=== PATIENT | male | born 1995 | race Caucasian/White ===

== ENCOUNTER 2020-12-09 07:57 | Emergency (ER) | payer OTHER, SELFPAY ==
--- NOTE | ~2020-12-09 | XR_ITS ---
EXAMINATION: XR ANKLE, RIGHT CLINICAL INFORMATION: Fall. COMPARISON: None. TECHNIQUE: AP, lateral, and mortise views of the right ankle. FINDINGS: Circumferential soft tissue swelling, most severe medially. Widening of the medial tibiotalar joint, likely indicating slight lateral talar head subluxation. Tiny probable avulsion fracture along the medial aspect of the talus. No joint space narrowing or marginal osteophytes. No osseous erosion. XR/XR ankle RT 2V IMPRESSION: Widening at the medial tibiotalar joint space, likely indicating slight lateral subluxation of the talar head. Probable tiny avulsion fracture along the medial aspect of the talus. Circumferential soft tissue swelling, most severe medially.
[2020-12-09 08:11] VITALS: BP 122/79; PULSE 820; RESP 16; TEMP 36.7; O2SAT 99; BMI 33.5
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
--- NOTE | 2020-12-09 08:32 | PC.NURSE ---
patient currently in x ray
== END 2020-12-09 09:46 | disposition home or self-care (01) ==
PROVIDERS: Emergency Provider Internal Medicine
DX: S93.401A Sprain of unspecified ligament of right ankle, initial encounter (principal); V18.0XXA Pedal cycle driver injured in noncollision transport accident in nontraffic accident, initial encounter; Y93.55 Activity, bike riding; Y92.9 Unspecified place or not applicable; Y99.9 Unspecified external cause status
CPT/HCPCS: 29515; 73600; 99282; 99283

== ENCOUNTER 2020-12-13 11:22 | Outpatient (REF) | payer OTHER, SELFPAY ==
--- NOTE | ~2020-12-13 | XR_ITS ---
EXAMINATION: XR TIBIA AND FIBULA, RIGHT CLINICAL INFORMATION: Sprain of one specified ligament. COMPARISON: Right ankle dated 12/09/20. TECHNIQUE: AP and lateral views of the right tibia and fibula were obtained. FINDINGS: There is an oblique fracture of the proximal shaft of the fibula. Alignment is anatomic. There is mild widening of the ankle mortise medially. XR/XR tibia fibula RT 2V IMPRESSION: Fracture proximal fibula with widening of the ankle mortise consistent with Maisonneuve fracture.
== END 2020-12-13 11:23 | disposition home or self-care (01) ==
LOC: HO.HOSX 11:22
PROVIDERS: Visit Provider Physician Assistant
DX: S82.861A Displaced Maisonneuve's fracture of right leg, initial encounter for closed fracture (principal); S93.439A Sprain of tibiofibular ligament of unspecified ankle, initial encounter
CPT/HCPCS: 73590

== ENCOUNTER 2020-12-18 11:18 | Day surgery (SDC) | payer OTHER, SELFPAY ==
--- NOTE | 2020-12-17 09:27 | P.CONAN_ITS ---
Documented by User: Leeanna Hermosillo NP 12/17/20 09:37 HPI - Anesthesia Eval Consult details Narrative: 25yo for Right Ankle ORIF with syndesmosis repair [facility] Past Medical History Medical History No significant past medical history Social History Social History Patient Tobacco Use Status: Never used Tobacco Use of substances other than those prescribed or required for medical reasons: No Have you been hit, kicked, punched, or otherwise hurt by someone within the past year? If so, by whom?: No Are you DNR?: No Advance Directives: No Advance Directives Information Provided: Yes Recently lost weight without trying: No Nutrition Risks: No Nutritional Risk Current occupational status: employed Current occupation: [employer] Allergies Allergy/AdvReac Type Severity Reaction Status Date / Time No Known Allergies Allergy Verified 12/18/20 11:41 Exam Exam Date and Time: December 17, 2020926 Assessment and Plan Assessment Anesthesia Assessment: Chart Reviewed Documented by User: Claudia Crum MD 12/18/20 13:18 [facility] Past Medical History Medical History No significant past medical history Family History Family history of problems with anesthesia: No Surgical History History of Problems with Anesthesia: No Social History Social History Patient Tobacco Use Status: Never used Tobacco Use of substances other than those prescribed or required for medical reasons: No Have you been hit, kicked, punched, or otherwise hurt by someone within the past year? 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 [employer] Meds Allergies Allergy/AdvReac Type Severity Reaction Status Date / Time No Known Allergies Allergy Verified 12/18/20 11:41 Exam Airway Mallampati Class: II TM Dist: >3cm Neck ROM: Full Assessment and Plan Assessment Anesthesia Assessment: Anesthesia Plan Discussed Final Anesthetic Review Family History of Problems with Anesthesia: No History of Problems with Anesthesia: No NPO: Yes ASA Class: I Final Preanesthetic Review: No Changes in Pt Med Stat, Meds/Allgs Chart Reviewed, Consent Obtained/Reviewed and Anes Risks/Benef Reviewed Patient Risk: Low Procedure Risk: Low Assessment/Block/Sedation in SS: Assess/Block/Sedation-SS Anesthetic Plan Anesthetic Plan: GA Disposition: Standard PACU
--- NOTE | ~2020-12-18 | FL_ITS ---
EXAMINATION: XR FLUOROSCOPY WITH IMAGES CLINICAL INFORMATION: Fracture right ankle. COMPARISON: Fracture proximal fibula. TECHNIQUE: Fluoroscopy performed by Dr. Joy on. Fluoroscopy time: 0.4 minutes DAP: 0.0314 mGycm2 Images: 3 FINDINGS: There is a small plate along the lateral aspect of fibula and medial aspect of the tibia with translucent tract connecting the 2 for likely stabilization/fusion. The ankle mortise and subtalar joints are normal. No fracture seen. FL/FL guidance in OR IMPRESSION: 2 metallic plates on the medial distal tibia and lateral distal fibula with interconnecting translucent tracts are stable. No acute fracture seen involving the ankle.
[2020-12-18 11:31] VITALS: BMI 34.4
[2020-12-18 11:34] VITALS: BP 142/79; PULSE 82; RESP 18; TEMP 36.6; O2SAT 97
[2020-12-18] MEDS: Lactated Ringers 1,000 ML 100 ML IVCONT (11:49)
--- NOTE | 2020-12-18 14:54 | P.BOP_ITS ---
Brief Operative Note Date of Service: 12/18/20 Pre-op diagnosis: maissonueve fracture, right Post-op diagnosis: same Procedure: ORIF right ankle syndesmosis Implants: [place] 2 hole fibular plate arthrex tightrope x2 Surgeon: Paulino Joy MD Anesthesia: GETA and local Was an Evp General Counsel used for this Procedure?: Yes Evp General Counsel: Ivania Mattson Estimated blood loss (mL): 5 IV fluids (mL): 500 Pathology: none sent Condition: stable Disposition: PACU
[2020-12-18 15:00] VITALS: BP 153/90; PULSE 82; RESP 12; TEMP 36.2; O2SAT 97
[2020-12-18 15:05] VITALS: BP 139/80; PULSE 85; RESP 14; O2SAT 94
[2020-12-18 15:10] VITALS: BP 135/93; PULSE 73; RESP 16; O2SAT 96
[2020-12-18 15:15] VITALS: BP 149/88; PULSE 80; RESP 18; O2SAT 97
[2020-12-18] MEDS: Acetaminophen 325 MG TABLET 650 MG PO (15:18)
[2020-12-18] MEDS: oxyCODONE HCl Immed Release 5 MG TABLET PO (15:19)
[2020-12-18 15:30] VITALS: BP 128/85; PULSE 78; RESP 16; TEMP 36.2; O2SAT 99
--- NOTE | 2020-12-23 16:42 | W.PM.OPN ---
Operative Note Operative Note Date of Service: 12/18/20 Narrative: Pre-op diagnosis: maissonueve fracture, right Post-op diagnosis: same Procedure: ORIF right ankle syndesmosis Implants: [place] 2 hole fibular plate arthrex tightrope x2 Surgeon: Paulino Joy MD Anesthesia: GETA and local Was an Special Education Instructor used for this Procedure?: Yes Special Education Instructor: Ivania Mattson Estimated blood loss (mL): 5 IV fluids (mL): 500 Pathology: none sent Condition: stable Disposition: PACU Procedure in detail: Patient was brought to the operating room placed supine on the operative table and prepped and draped in standard sterile fashion. Time-out was called of her purpose hyper procedure proper surgeon IV antibiotics per weight were administered. I began by exsanguinating limited slightly tourniquet to 300 mm Hg. I then made a small stab incision over the distal fibular shaft. Dissection was taken down to the bone and a incision was made over the medial aspect of the distal tibia as well. This was approximately 5 mm in length. A sharp tenaculum was the used to reduce the syndesmosis. I then placed a 2 hole lateral buttress plate and using standard technique placed the Arthrex tight rope from lateral to medial in line with the articular surface. I then tightened each of these tight rope sequentially and then removed the syndesmosis clamp. I was happy with the radiographic imaging and a external rotation test was used to confirm that the mortise was stable and the medial clear space did not widen. Once I was happy with the position of the hardware in the stability of the syndesmosis I removed all instrumentation. I irrigated copiously closed with absorbable sutures and gianluca. Patient was placed into a well-padded posterior splint extubated brought to recovery room in stable condition there were no known complications.
== END 2020-12-18 16:24 | disposition home or self-care (01) ==
PROVIDERS: PCP Internal Medicine; Visit Provider Orthopaedic Surgery
PROC: (CPT 27829; principal; 2020-12-18 13:40)
DX: S82.861A Displaced Maisonneuve's fracture of right leg, initial encounter for closed fracture (principal); S93.431A Sprain of tibiofibular ligament of right ankle, initial encounter; V19.9XXA Pedal cyclist (driver) (passenger) injured in unspecified traffic accident, initial encounter; Y93.55 Activity, bike riding; Y92.9 Unspecified place or not applicable; Y99.8 Other external cause status
CPT/HCPCS: 27829; C1713; J0690; J1100; J2250; J2405; J3010

== ENCOUNTER → 2020-12-27 14:22 | Outpatient (BNVA) | payer OTHER, SELFPAY | PROVIDERS: Visit Provider Physician Assistant ==

== ENCOUNTER 2021-01-01 07:57 | Outpatient (REF) | payer OTHER, SELFPAY ==
--- NOTE | ~2021-01-01 | XR_ITS ---
EXAMINATION: XR ANKLE, RIGHT CLINICAL INFORMATION: Right ankle pain. COMPARISON: Right tibia and fibula 12/18/2020 TECHNIQUE: AP, lateral, and mortise views of the right ankle. FINDINGS: Again visualized are metallic plates along the lateral distal tibial cortex and 2 medial metallic plates along the distal tibial medial cortex and 2 translucent tracks through the distal tibia and fibula. They appear similar to previous study 12/18/2020. The ankle mortise and subtalar joints are normal. XR/XR ankle RT min 3V IMPRESSION: Metallic plates along the distal fibula and along the medial distal tibia are visualized with 2 translucent tracks along the distal tibia and fibula.
== END 2021-01-01 07:58 | disposition home or self-care (01) ==
LOC: HO.HOSX 07:57
PROVIDERS: Visit Provider Physician Assistant
DX: S93.431D Sprain of tibiofibular ligament of right ankle, subsequent encounter (principal); S82.861D Displaced Maisonneuve's fracture of right leg, subsequent encounter for closed fracture with routine healing
CPT/HCPCS: 73610

== ENCOUNTER 2021-01-30 10:16 | Outpatient (REF) | payer OTHER, SELFPAY ==
--- NOTE | ~2021-01-30 | XR_ITS ---
EXAMINATION: XR ANKLE, RIGHT CLINICAL INFORMATION: Pain. COMPARISON: Previous x-rays most recent 01/01/2021. TECHNIQUE: AP, lateral, and mortise views of the right ankle. FINDINGS: There are lateral plates in the distal fibular shaft and 2 medial plates in the distal tibial shaft. Horizontal lucent tracks in the distal shafts of the tibia and fibula appear unchanged. The ankle mortise is normal. There is anterior and medial soft tissue swelling adjacent to the ankle. There may be an ankle joint effusion. XR/XR ankle RT min 3V IMPRESSION: Stable appearance to the orthopedic hardware in the distal tibia and fibula. Stable ankle mortise. Anterior and medial soft tissue swelling.
== END 2021-01-30 10:17 | disposition home or self-care (01) ==
LOC: HO.HOSX 10:16
PROVIDERS: Visit Provider Physician Assistant
DX: S93.431D Sprain of tibiofibular ligament of right ankle, subsequent encounter (principal)
CPT/HCPCS: 73610

== ENCOUNTER 2021-04-15 07:00 | Outpatient (RCR) | payer OTHER, SELFPAY ==
--- NOTE | 2021-03-04 09:53 | MHC.PT.EP ---
[facility] [place] Office [place] Office [place] Office [address] Negra Silva [address] [phone] F: [phone] F: [phone] F: [phone] F: [phone] Physical Therapy Plan of Care Date of Evaluation: Date of Surgery: 12/18/20 Diagnosis: LEFT ANKLE SYNDESMOSIS REPAIR Assessment: JORGE IS A PLEASANT 25 YO MALE WHO PRESENTS S/P LEFT ANKLE SYNDESMOSIS REPAIR ON 12/18/20. UPON EXAM IMPAIRMENTS INCLUDE DECREASED FOOT AND ANKLE ROM, DECREASED STRENGTH OF FOOT INTRINSICS AND ANKLE, ALTERED GAIT AND BALANCE. FUNCTIONAL LIMITATIONS INCLUDE DECREASED TOLERANCE TO WALKING, STATIC STANDING, STAIR CLIMBING AND HIGHER DEMAND HOMEMAKING TASKS, HE REPORTS INABILITY TO PARTICIPATE IN FITNESS AND RECREATIONAL TASKS. A PT IS A GOOD CANDIDATE FOR SKILLED PT DUE TO AGE, POTENTIAL REMEDIATION OF IMPAIRMENTS, TYPICAL DISEASE/CONDITION PROGRESSION AND PROGNOSIS, COMORBIDITIES, AND MOTIVATION. PT WOULD BENEFIT FROM TAILORED PROGRAM OF THERAPEUTIC ACTIVITIES, FUNCTIONAL TRAINING, GAIT TRAINING, POSTURAL EDUCATION, NEUROMUSCULAR RE-EDUCATION, AND MODALITIES NEEDED. Frequency and Duration: The patient will be seen 2 X WEEK FOR 4 WEEKS THEN REASSESS Short Term Goals: INITIATE HEP AND PROMOTE SELF MANAGEMENT OF SYMPTOMS IN 2 VISITS Hose Finisher Goals: IN 4 WEEKS: TO DEMONSTRATE FULL ANKLE ROM, EQUAL CLYDE TO DEMONSTRATE FULL LE STRENGTH, EQUAL CLYDE TO ASCEND AND DESCEND STAIRS WITHOUT PAIN TO AMBULATE AD FELIZ ON LEVEL AND UNEVEN SURFACES FOR FITNESS WITHOUT PAIN GREATER THAN 2/10 TO PERFORM FULL FUNCTIONAL SQUAT WITHOUT SUBSTITUTION TO RETURN TO FITNESS ACTIVITIES ABLE, IE BIKING AND JOGGING Treatment Plan: Modalities to reduce pain, spasms and effusion. Manual therapy to restore motion and function. Therapeutic exercise to improve strength and flexibility. Neuromuscular re-education for posture and balance. Therapeutic activities to return to functional activities of daily living. Electronically signed by: EDUARDO SARAH PT, DPT Please sign and return to therapist. Thank you for your referral.
--- NOTE | 2021-05-01 11:41 | MHC.PT.DC ---
[facility] [place] Office [place] Office [place] Office [address] Negra Silva 140 [facility] [phone] F: [phone] F: [phone] F: [phone] F: [phone] Physical Therapy Discharge Report Diagnosis: LEFT ANKLE SYNDESMOSIS REPAIR Date of Surgery: 12/18/20 Date of Evaluation: 03/04/21 Date of Discharge: Treatments to Date: 10 Cancellations to Date: 0 No Shows to Date: 0 Discharge Status: Achieved Goals Improved Function Independent with HEP Discharge Summary: goals met, has returned to PLOF Electronically signed by: Soo Fisher PT, DPT Please sign and return to therapist. Thank you for your referral.
== END 2021-05-01 11:42 | disposition home or self-care (01) ==
LOC: HO.PT 07:00
PROVIDERS: PCP Family Medicine; Visit Provider Physician Assistant
DX: S93.432D Sprain of tibiofibular ligament of left ankle, subsequent encounter (principal)
CPT/HCPCS: 97110; 97161; 97530

== ENCOUNTER 2021-04-23 08:58 | Outpatient (REF) | payer OTHER, SELFPAY ==
[2021-04-23 10:07] LABS: COVID-19 Test Positive (Negative); IDNOW Serial# 16C4AD1C
== END 2021-04-23 08:59 | disposition home or self-care (01) ==
LOC: HO.LAB 08:58
PROVIDERS: Visit Provider Internal Medicine
DX: Z20.822 Contact with and (suspected) exposure to COVID-19 (principal)
CPT/HCPCS: 36415; 87635; C9803

== ENCOUNTER 2021-06-26 08:19 | Outpatient (REF) | payer OTHER, SELFPAY ==
[2021-06-26 09:38] LABS: Alanine Aminotransferase 35 U/L (0-40); Albumin Level 4.3 g/dL (3.5-5.0); Alkaline Phosphatase 66 U/L (39-117); Anion Gap 11 (12-20); Aspartate Amino Transferase 25 U/L (5-37); Bilirubin Total 3.4 mg/dL (0.0-1.0); Blood Urea Nitrogen 12 mg/dL (9-16); Calcium 9.6 mg/dL (8.4-10.2); Carbon Dioxide 31 mmol/L (22-29); Chloride 105 mmol/L (96-108); Cholesterol 149 mg/dL; Estimated Glomerular Filt Rate > 60; Glucose Fasting 107 mg/dL (60-99); HDL Cholesterol 36 mg/dL; LDL Cholesterol Calculated 81 mg/dl; Potassium 4.6 mmol/L (3.3-5.1); Sodium 142 mmol/L (135-145); Triglycerides 161 mg/dL
[2021-06-26 10:03] LABS: TSH reflex Free T4 0.59 uIU/mL (0.32-4.0)
== END 2021-06-26 08:20 | disposition home or self-care (01) ==
LOC: HO.LAB 08:19
PROVIDERS: PCP Family Medicine; Visit Provider Family Medicine
DX: Z00.00 Encounter for general adult medical examination without abnormal findings (principal)
CPT/HCPCS: 36415; 80053; 80061; 84443

== ENCOUNTER 2021-07-04 08:26 | Outpatient (REF) | payer OTHER, SELFPAY ==
[2021-07-04 09:23] LABS: Estimated Average Glucose 91 mg/dL; Hemoglobin A1c % 4.8 %
[2021-07-04 09:41] LABS: Alanine Aminotransferase 49 U/L (0-40); Albumin Level 4.5 g/dL (3.5-5.0); Alkaline Phosphatase 64 U/L (39-117); Anion Gap 13 (12-20); Aspartate Amino Transferase 29 U/L (5-37); Bilirubin Total 1.9 mg/dL (0.0-1.0); Blood Urea Nitrogen 13 mg/dL (9-16); Calcium 9.7 mg/dL (8.4-10.2); Carbon Dioxide 28 mmol/L (22-29); Chloride 105 mmol/L (96-108); Estimated Glomerular Filt Rate > 60; Glucose Fasting 101 mg/dL (60-99); Potassium 4.9 mmol/L (3.3-5.1); Sodium 141 mmol/L (135-145); Total Protein 7.2 g/dL (6.5-8.0)
== END 2021-07-04 08:27 | disposition home or self-care (01) ==
LOC: HO.LAB 08:26
PROVIDERS: PCP Family Medicine; Visit Provider Family Medicine
DX: Z00.00 Encounter for general adult medical examination without abnormal findings (principal); R73.01 Impaired fasting glucose
CPT/HCPCS: 36415; 80053; 83036

== ENCOUNTER 2021-07-18 18:00 | Emergency (ER) | payer OTHER, SELFPAY ==
[2021-07-18 18:24] VITALS: BP 120/67; PULSE 77; RESP 18; TEMP 36.8; O2SAT 97; BMI 35.9
--- NOTE | 2021-07-18 19:26 | ED_ITS ---
HPI - Skin/Abscess/Foreign Bdy General Chief complaint: Skin/Abscess/Foreign Body Stated complaint: bleeding growth on rt side neck Time Seen by Provider: 07/18/21 18:48 Source: patient Mode of arrival: ambulatory Limitations: no limitations History of Present Illness HPI narrative: Patient noticed a soft tissue growth on the right shoulder for last 10 days getting bigger patient apparently skin scratch the area and noticed a more like growth with losing blood from it Related Data Home Medications Medication Instructions Recorded Confirmed No Known Home Meds 03/18/21 03/18/21 Allergies Allergy/AdvReac Type Severity Reaction Status Date / Time No Known Allergies Allergy Verified 07/18/21 18:24 Review of Systems Review of Systems: Yes all other systems are reviewed and are negative PMFSH Past Medical History Medical History No significant past medical history Social History Social History Patient Tobacco Use Status: Never used Tobacco e-Cigarette/Vaping Use: Never Used Second Hand Smoke Exposure: No Advance Directives: No Advance Directives Information Provided: No Current occupational status: employed 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 1 x 1 cm of soft tissue growth oozing blood Procedures Procedure Narrative Procedure Narrative: benign growth removal from right shoulder 1 x 1 cm benign growth was removed using blade base of the lesion was cauterized to stop bleeding sample was sent for pathology Discharge Plan Discharge Clinical Impression: Benign skin growth Patient Disposition: Home, Self-Care Instructions: Common Wart (ED) Additional Instructions: skin growth is likely benign will get the pathological report Local care as advised Prescriptions: No Action No Known Home Meds 0RF Interventions: ED Discharge Assessment Last Done: 07/18/21 19:48 Discharge Date/Time: 07/18/21 19:49
--- NOTE | 2021-07-18 19:47 | PC.NURSE ---
GROWTH REMOVED BY DR FARRIS. SITE CAUTERIZED AND BACITRACIN AND BANDAID APPLIED.
== END 2021-07-18 19:49 | disposition home or self-care (01) ==
PROVIDERS: Emergency Provider Internal Medicine; PCP Family Medicine
DX: D23.61 Other benign neoplasm of skin of right upper limb, including shoulder (principal)
CPT/HCPCS: 11200; 88305; 99283; 99284

== ENCOUNTER 2022-12-15 19:28 | Emergency (ER) | payer OTHER, SELFPAY ==
[2022-12-15 19:30] VITALS: BP 124/63; PULSE 89; RESP 18; TEMP 36.9; O2SAT 96; BMI 31.5
--- NOTE | 2022-12-15 19:32 | ED_ITS ---
HPI - Eye Problem General Chief complaint: Eye Problems Stated complaint: Allergic reaction Related Data Home Medications Medication Instructions Recorded Confirmed No Known Home Meds 03/18/21 03/18/21 Allergies Allergy/AdvReac Type Severity Reaction Status Date / Time No Known Allergies Allergy Verified 07/18/21 18:24 [facility] Past Medical History Medical History No significant past medical history Social History Social History Patient Tobacco Use Status: Never used Tobacco e-Cigarette/Vaping Use: Never Used Second Hand Smoke Exposure: No Current occupational status: employed 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 Admits to similar symptoms in the past after going and run, denies known allergens, foreign body sensation, trauma, vision loss. Denies wearing glasses or contacts. Also reports some itchiness in throat. + right periorbital swelling noted with tearing. Talking in complete sentences. ?allergic rxn vs preseptal cellulitis vs FB abrasion Visual acuity, PO Benadryl, Tetricaine/Fluorescein ordered Full HPI, ROS and PE to be performed by primary ED provider. Medications Administered Discontinued Medications Generic Name Dose Route Start Last Admin Trade Name Freq PRN Reason Stop Dose Admin Diphenhydramine HCl 50 mg 12/15/22 19:32 12/15/22 19:42 Diphenhydramine Hcl 25 Mg Capsule PO 12/15/22 19:33 50 mg ONCE ONE Administration Discharge Plan Discharge Clinical Impression: Swelling of eye Patient Disposition: Elopement Prescriptions: No Action No Known Home Meds Interventions: ED Discharge Assessment Last Done: 12/15/22 21:53 Discharge Date/Time: 12/15/22 21:53
[2022-12-15] MEDS: diphenhydrAMINE HCL 25 MG CAPSULE 50 MG PO (19:42)
--- NOTE | 2022-12-15 21:47 | PC.NURSE ---
Pt not in waiting room when called. This RN calling pt, able to reach patient via his cell phone, states he Will be okay and does not want to return.
== END 2022-12-15 21:53 | disposition left against medical advice (07) ==
LOC: HO.ED 21:50
PROVIDERS: Emergency Provider Emergency Medicine; PCP Family Medicine
DX: H02.843 Edema of right eye, unspecified eyelid (principal)
CPT/HCPCS: 99282; 99283

== ENCOUNTER 2023-02-02 11:11 | Outpatient (AMB) | payer OTHER, SELFPAY ==
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
[2023-02-02 11:43] VITALS: BP 124/76; PULSE 61; RESP 16; O2SAT 99; BMI 31.3
== END 2023-02-02 13:23 | disposition home or self-care (01) ==
PROVIDERS: PCP Family Medicine; Visit Provider Family Medicine
DX: Z00.00 Encounter for general adult medical examination without abnormal findings (principal); M25.521 Pain in right elbow; T78.2XXA Anaphylactic shock, unspecified, initial encounter; Y93.89 Activity, other specified; R22.0 Localized swelling, mass and lump, head; E78.6 Lipoprotein deficiency; R74.01 Elevation of levels of liver transaminase levels
CPT/HCPCS: 99213; 99395

== ENCOUNTER 2023-02-05 12:40 | Outpatient (REF) | payer OTHER, SELFPAY ==
[2023-02-05 14:49] LABS: Alanine Aminotransferase 22 U/L (0-40); Albumin Level 4.4 g/dL (3.5-5.0); Alkaline Phosphatase 59 U/L (39-117); Anion Gap 14 (12-20); Aspartate Amino Transferase 20 U/L (5-37); Bilirubin Total 2.5 mg/dL (0.0-1.0); Blood Urea Nitrogen 12 mg/dL (9-16); Calcium 9.3 mg/dL (8.4-10.2); Carbon Dioxide 25 mmol/L (22-29); Chloride 108 mmol/L (96-108); Cholesterol 125 mg/dL (<200); Estimated Glomerular Filt Rate > 60; Glucose Fasting 92 mg/dL (60-99); HDL Cholesterol 40 mg/dL (>40); LDL Cholesterol Calculated 68 mg/dL (<100); Potassium 4.1 mmol/L (3.3-5.1); Sodium 143 mmol/L (135-145); Total Protein 7.1 g/dL (6.5-8.0); Triglycerides 87 mg/dL (<150)
[2023-02-05 16:37] LABS: Appearance Urine Clear; Color Urine Yellow; Glucose Urine UA Negative (Negative); Leukocyte Esterase Urine Negative (Negative); Nitrite Urine Negative (Negative); PH 6.5 (5.0-9.0); Urine Blood Negative (Negative); Urine Ketones Negative (Negative); Urine Protein Negative (Neg-Trace)
== END 2023-02-05 12:41 | disposition home or self-care (01) ==
LOC: HO.LAB 12:40
PROVIDERS: PCP Family Medicine; Visit Provider Family Medicine
DX: Z00.00 Encounter for general adult medical examination without abnormal findings (principal)
CPT/HCPCS: 36415; 80053; 80061; 81003; 84443

== ENCOUNTER 2023-03-29 07:00 | Outpatient (RCR) | payer OTHER, SELFPAY ==
--- NOTE | 2023-03-10 10:04 | MHC.OT.EP ---
[address] [phone] Occupational Therapy Plan of Care Patient Name: Jhonny Kaur Date of Evaluation: 03/10/23 Diagnosis: R Elbow pain Pain Location: R elbow 0 at rest goes to 5 with activities at gym, pain in posterior elbow, tender to palpate distal tricep Pain Score: 0 Pain Scale Used: Numeric (0 - 10) Aggravating Factors: Going to gym push ups etc Alleviating Factors: None tried Assessment: 27 YO M presents for OT services after reports of R elbow pain. He was seen 02/02/[address] Ladd. Upon assessment pt strength and ROM are within functional limits. He states he has trouble exercising at the gym, specifically with tricep ext, push-ups and planks, and has some tenderness to touch at posterior elbow/tricep insertion. Symptoms suggest possible tricep tendonitis. Pt would benefit from brief course of OT to address pain and edema with focus on activity modification and joint protection. 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 Thank you once again for your referral.
--- NOTE | 2023-04-09 08:18 | MHC.OT.DC ---
[address] [phone] F: [phone] Occupational Therapy Discharge Note Patient Name: Jhonny Kaur Provider: Dr Abdiel Ladd Diagnosis: R Elbow pain Date of Evaluation: 03/10/23 Date of Discharge: 04/09/23 Treatments to Date: 6 Discharge Status: Achieved Goals Improved Function Independent with HEP Discharge Summary: Jhonny is a 27 yo male referred to OT for right elbow pain, consistent w/ tricep tendinitis. He was seen for course of OT and had good follow through with joint protection, activity modification and HEP. He has done well and is now pain free at rest and avoiding heavy tasks and gym strengthening, with education on progression of activity to return to prior level. Electronically Signed By: CHLOE Fernandez/Toma BELLA Reviewed/agree with student documentation: Yes Therapist: CHLOE Fernandez/Toma BELLA Please Sign and return to therapist, thank you for your referral.
== END 2023-04-09 08:19 | disposition home or self-care (01) ==
LOC: HO.OT 07:00
PROVIDERS: PCP Family Medicine; Visit Provider Family Medicine
DX: M25.521 Pain in right elbow (principal)
CPT/HCPCS: 97033; 97140; 97165

== ENCOUNTER 2024-09-19 09:21 | Outpatient (AMB) | payer BC, SELFPAY ==
[2024-09-19 09:23] VITALS: BP 112/70; PULSE 67; O2SAT 97; BMI 32.4
--- NOTE | 2024-09-19 09:23 | A.OFFPC_ITS ---
Vital Signs 09/19/24 09:23 Height 5 ft 11 in Weight 232 lb BMI 32.4 BP 112/70 Blood Pressure Location Rt brachial Position Sitting Pulse 67 Pulse Source Pulse Oximeter Pulse Oximetry (%) 97 Oxygen Delivery Method Room Air Intake Visit Reasons: HUGO DR Ladd Care Provider Required: No Accompanied by: Self / Same As Patient Allergies No Known Allergies Allergy (Verified 09/19/24 09:51) Medication List - Last Reconciled 09/19/24 by PADMAJA Vincent epinephrine (EpiPen 2-Alex) 0.3 mg (0.3 mL) IM Q4H PRN 30 days Tobacco use date assessed: 09/19/24 Dental Screening Dental Screen Date: 09/19/24 Did you have a dental visit in the last 12 months?: Yes Did you have a dental problem in the last 6 months where you did not have access to dental care?: No Was dental information given to patient?: Patient has dentist HPI [facility]GO DR Ladd HPI Details The patient is a 29-year-old male transferring the our [place] office. He used to see Era Ladd. Last visit was January 2023. Presenting with a small, non-tender lump in the right posterior neck, present for about a year without notable changes. He describes no pain or other symptoms related to the lump. The patient denies chest pain, SOB, heart palpitation and changes in bowel habits. Additionally, he reports experiencing gastroesophageal reflux, particularly after eating late-night meals that are high in sodium, grease, or acidity, which consistently trigger heartburn. He consumes such meals around three times per week and goes to bed shortly after. Though he occasionally feels nauseous, it does not frequently escalate to vomiting. His medical history is notable for borderline elevated bilirubin levels, which he correlates with prior alcohol use, and previously recorded high cholesterol levels, though he lacks recent laboratory results for monitoring. His familial medical history includes hypercholesterolemia. [facility], [facility] Medical History No significant past medical history Family History Mother Mental health disorder Sister Mental health disorder Social History Household Members: Family Both parents involved: No Housing: House Are you a primary companion caregiver to a significant other at home: No Do you presently have visiting nurse or other home services: No 75 years or older and lives alone: No Alcohol intake: former Patient Tobacco Use Status: Never used Tobacco e-Cigarette/Vaping Use: Never Used Second Hand Smoke Exposure: No Special toshia needs: No Agree to transfusion: Yes Advance Directives Date on File: 02/02/23 service: No Current occupational status: employed Current occupation: [employer] Current occupational exposures/hazards: No Cognitive needs: No Hearing needs: No Vision needs: No Questionnaire PHQ-9 Over the last 2 weeks, how often have you been bothered by any of the following problems? 1. Little interest or pleasure in doing things: not at all 2. Feeling down, depressed, or hopeless: not at all 3. Trouble falling or staying asleep, or sleeping too much: not at all 4. Feeling tired or having little energy: not at all 5. Poor appetite or overeating: not at all 6. Feeling bad about yourself - or that you are a failure or have let yourself or your family down: not at all 7. Trouble concentrating on things, such as reading the newspaper or watching television: nearly every day 8. Moving or speaking so slowly that other people could have noticed. Or the opposite - being so fidgety or restless that you have been moving around a lot more than usual: nearly every day 9. Thoughts that you would be better off or of hurting yourself in some way: not at all Total score: 6 Depression Screening Interpretation: Positive Depression Screening Done: Yes 91964 - PHQ-9 Billing: Yes Source: Developed by Drs. Jayant Gil, Paola Diallo, Pk Prasad and colleagues, with an educational pranay from [employer]. Thrive Questionnaire Date Thrive assessed: 09/19/24 I am a: Patient What is your living situation today?: I have a steady place to live Within the past 12 months, did the food you bought not last and you didn't have the money to get more?: Never true Within the past 12 months, did you worry whether your food would run out before you got money to buy more?: Never true Do you have trouble paying for medicines?: No Do you have trouble getting transportation to medical appointments?: No Do you have trouble paying your heating and electricity bill?: No Do you have trouble taking care of your child, family member or friend?: No Do you have trouble with day-to-day activities such as bathing, preparing meals, shopping, managing finances, etc.?: No Are you currently unemployed and looking for a job?: No Are you interested in more education?: No Please select the resources that you would like help with: None Currently or been in a relationship where the following occur: No concerns reported THRIVE Score: 0 AUDIT C Alcohol Use Questionnaire (AUDIT-C) 1. How often do you have a drink containing alcohol?: Never 3. How often do you have six or more drinks on one occasion?: Never Total Score: 0 RAQUEL-7 AMB Questionnaire RAQUEL-7 Date RAQUEL - 7 assessed: 09/19/24 Feeling nervous, anxious, or on edge: 0 = Not at all Not being able to stop or control worryin = Not at all Worrying too much about different things: 0 = Not at all Trouble relaxin = Not at all Being so restless that it is hard to sit still: 0 = Not at all Becoming easily annoyed or irritable: 0 = Not at all Feeling afraid as if something awful might happen: 0 = Not at all Total RAQUEL-7 score (0-4 normal; 5-9 mild; 10-14 moderate; 15-21 severe): 0 Source: Developed by Drs. Jayant Gil, Paola Diallo, Pk Prasad and colleagues, with an educational pranay from [employer]. RAQUEL-7 Assessment Billing RAQUEL-7 Assessment Tool: RAQUEL-7 Assessment 19058 Review of Systems Const Denies headache(s) Eyes Denies loss of vision ENT Denies vertigo, Denies dizziness, Denies headache(s) and Denies sore throat Card Denies chest pain, Denies leg edema and Denies lightheadedness Resp Denies cough, Denies hemoptysis and Denies wheezing GI Denies abdominal pain, Denies melena, Denies constipation, Reports heartburn, Denies diarrhea, Reports nausea (Intermittent) and Denies vomiting Denies dysuria, Denies urinary frequency and Denies urinary urgency Musc Denies arthralgias, Denies joint swelling, Denies numbness and Denies tingling Skin/Breast Reports lesions (Posterior neck lump) Neuro Denies Abnormal speech present, Denies behavioral changes, Denies vertigo, Denies dizziness, Denies headache(s), Denies loss of vision, Denies memory loss, Denies numbness and Denies tingling Psych Denies anxiety, Denies behavioral changes, Denies depression, Denies memory loss and Denies panic attacks Eh/Lymph Denies easy bleeding and Denies easy bruising Aller/Immun Denies wheezing Physical exam (Primary Care) Vital Signs: Last Vital Signs Pulse 67 09/19/24 09:23 BP 112/70 09/19/24 09:23 Pulse Ox 97 09/19/24 09:23 Oxygen Delivery Method Room Air 09/19/24 09:23 BMI result Body Mass Index 32.4 Tobacco/Smoking Status: Tobacco use Status Tobacco use date assessed 09/19/24 09/19/24 09:28 Patient Tobacco Use Status Never used Tobacco 09/19/24 09:28 e-Cigarette/Vaping Use Never Used 09/19/24 09:28 PHQ-9: PHQ-9 Score PHQ-9: Total score 6 09/19/24 09:28 Depression Screening Interpretation: Positive Thrive Assessment: Date of Thrive Assessment Date Thrive assessed 09/19/24 09/19/24 09:28 Currently or been in a relationship where the following occur: No concerns reported Const General: healthy appearing, no acute distress, alert and awake Nutritional Appearance: well nourished Orientation/consciousness: oriented to person, oriented to place and oriented to time HENLA Ears: TM's normal bilaterally General nose exam: Normal nasal mucous membranes and turbinates present Eyes Conjunctivae: conjunctivae normal Sclerae: sclerae normal Pupils: Equal, round and reactive pupils present Neck Neck: Yes no lymphadenopathy and Yes no JVD Thyroid: Thyroid normal Carotids: no bruits Resp Effort & Inspection: normal respiratory effort and not tachypneic Auscultation: no crackles, no rales, no rhonchi and no wheezes Cardio Rate: regular rate Rhythm: regular rhythm Heart sounds: no murmurs and normal S1 and S2 GI Palpation (GI): Soft to palpation, nontender, no hepatomegaly and no splenomegaly Auscultation: normal bowel sounds Skin General skin exam: dry skin Lesions: lesion noted (Lump to right side of the posterior neck) Neuro General: oriented to person, oriented to place and oriented to time Cranial nerves: Yes Equal, round and reactive pupils present Speech: No Abnormal speech present Gait exam (Neuro): Normal gait present Motor exam (neuro): no tremor noted Extrem Right upper extremity: full ROM Left upper extremity: full ROM Right lower extremity: full ROM; no edema Left lower extremity: full ROM; no edema Psych Mental Status: mental status grossly normal Speech and movement: Normal speech and movement present Affect: normal affect Attitude: cooperative Thought process: Normal thought process present Coding Level of Care Code Est Pt Level 3 (97989) Diagnoses Localized swelling, mass and lump, neck R22.1 Elevated alanine aminotransferase (ALT) level R74.01 Elevated bilirubin R17 Heartburn R12 Hyperlipidemia, unspecified hyperlipidemia type E78.5 Hyperlipidemia type: unspecified Additional Codes PHQ-9 - 21365 - PHQ-9 Billing: Yes ([id number]) RAQUEL-7 Assessment Billing - RAQUEL-7 Assessment Tool: RAQUEL-7 Assessment 64357 ([id number]) Time Spent (min) 34 Assessment & Plan Assessment & Plan (1) Localized swelling, mass and lump, neck: Code(s): R22.1 - Localized swelling, mass and lump, neck Category: Medical Plan: One year history of right posterior neck lump. Reports that he has not noticed any changes to the lump area after noticing it. Denies pain the area. We will order a neck ultrasound to further evaluate. (2) Elevated alanine aminotransferase (ALT) level: Code(s): R74.01 - Elevation of levels of liver transaminase levels Category: Medical Plan: History of elevated liver enzymes. No recent labs in 2022 we will order labs and advise after resulted (3) Elevated bilirubin: Code(s): R17 - Unspecified jaundice Category: Medical Plan: History of elevated bilirubin. The patient reports that he used to drink a lot of alcohol and has since stopped, so he is expecting that his numbers should be better. CMP ordered we will advise after resulted. (4) Heartburn: Code(s): R12 - Heartburn Category: Medical Plan: Reports heartburn and feeling of nausea that resolves without vomiting associated with high grease, acid and sodium diet. Do not eat meals or drink carbonated beverages within 3 hr of bedtime Decrease the amount of fried, fatty, and spicy foods to decrease gastric acid production Raise the head of the bed using 4 to 6-inch blocks, especially if nocturnal symptoms are present Lose weight if indicated; avoid tight-fitting clothing, especially around the waist Avoid foods that relax the Lower esophageal sphincter (chocolate, peppermint, high-fat foods etc.,) (5) HLD (hyperlipidemia): Code(s): E78.5 - Hyperlipidemia, unspecified Category: Medical Qualifiers: Hyperlipidemia type: unspecified Qualified Code(s): E78.5 - Hyperlipidemia, unspecified Plan: Reports a history of high cholesterol. Encouraged Low cholesterol diet and activity as tolerated We will order lipid panel and advise when resulted Orders: Orders Complete Blood Count Auto Diff Today Z00.00 - Encounter for general adult medical examination without abnormal findings Comprehensive [place]. Panel Fast Today Z00.00 - Encounter for general adult medical examination without abnormal findings TSH reflex Free T4 Today Z00.00 - Encounter for general adult medical examination without abnormal findings UA CC w/rflx Micro + Cult Today Z00.00 - Encounter for general adult medical examination without abnormal findings Vitamin D 25-OH Total Today Z00.00 - Encounter for general adult medical examination without abnormal findings Glucose Fasting Today Z00.00 - Encounter for general adult medical examination without abnormal findings Lipid Panel Today Z00.00 - Encounter for general adult medical examination without abnormal findings US soft tiss head and/or neck Today R22.1 - Localized swelling, mass and lump, neck
== END 2024-09-19 10:08 | disposition home or self-care (01) ==
LOC: HO.HMCH 09:22
PROVIDERS: PCP Family Medicine
DX: R22.1 Localized swelling, mass and lump, neck (principal); R74.01 Elevation of levels of liver transaminase levels; R17 Unspecified jaundice; R12 Heartburn; E78.5 Hyperlipidemia, unspecified

== ENCOUNTER 2024-09-19 09:21 | Outpatient (REF) | payer BC, SELFPAY ==
[2024-09-19 10:39] LABS: MANUAL DIFF FLAG NO
[2024-09-19 10:47] LABS: Basophils Absolute Auto 0.1 X10*3/uL (0.0-0.2); Eosinophils Absolute Auto 0.3 X10*3/uL (0.0-0.4); Eosinophils Percent Auto 4.7 % (0-4); Hematocrit 45.9 % (42.0-52.0); Hemoglobin 15.5 g/dl (14.0-18.0); Imm Gran Abs Auto 0.05 X10*3/uL (0.00-0.03); Imm Gran Pct Auto 0.7 % (0.0-0.4); Lymphocytes Absolute Auto 2.3 X10*3/uL (1.2-4.9); Lymphocytes Percent Auto 32.1 % (20-40); Mean Corpuscular HGB Conc 33.8 g/dl (31.0-36.0); Mean Corpuscular Hemoglobin 29.2 pg (27.0-33.0); Mean Corpuscular Volume 86.4 fL (80.0-98.0); Mean Platelet Volume 10.5 fL (9.4-12.4); Monocytes Absolute Auto 0.5 X10*3/uL (0.1-1.2); Monocytes Percent Auto 6.3 % (2-11); Neutrophils Percent Auto 55.2 % (45-73); Platelet Count 217 X10*3/uL (160-400); Red Blood Count 5.31 X10*6/uL (4.60-5.80); Red Cell Distribution Width 12.3 % (11.0-16.0); White Blood Count 7.3 X10*3/uL (4.8-10.8)
[2024-09-19 11:07] LABS: Appearance Urine Clear; Color Urine Yellow; Glucose Urine UA Negative (Negative); Leukocyte Esterase Urine Negative (Negative); Nitrite Urine Negative (Negative); Urine Blood Negative (Negative); Urine Ketones Negative (Negative); Urine Protein Negative (Neg-Trace)
[2024-09-19 11:39] LABS: Alanine Aminotransferase 42 U/L (0-40); Albumin Level 4.4 g/dL (3.5-5.0); Alkaline Phosphatase 49 U/L (39-117); Anion Gap 10 (12-20); Aspartate Amino Transferase 36 U/L (5-37); Bilirubin Total 1.9 mg/dL (0.0-1.0); Blood Urea Nitrogen 13 mg/dL (9-16); Calcium 9.3 mg/dL (8.4-10.2); Carbon Dioxide 28 mmol/L (22-29); Chloride 108 mmol/L (96-108); Cholesterol 121 mg/dL (<200); Estimated Glomerular Filt Rate > 60; Glucose Fasting 95 mg/dL (60-99); HDL Cholesterol 37 mg/dL (>40); LDL Cholesterol Calculated 60 mg/dL (<100); Potassium 4.8 mmol/L (3.3-5.1); Sodium 141 mmol/L (135-145); TSH reflex Free T4 0.83 uIU/mL (0.32-4.0); Total Protein 6.8 g/dL (6.5-8.0); Triglycerides 121 mg/dL (<150); Vitamin D 25-OH Total 16.2 ng/mL (>30)
== END 2024-09-19 09:22 | disposition home or self-care (01) ==
LOC: HO.LAB 09:21
DX: R22.1 Localized swelling, mass and lump, neck (principal); R74.01 Elevation of levels of liver transaminase levels; R17 Unspecified jaundice; R12 Heartburn; E78.5 Hyperlipidemia, unspecified; Z00.00 Encounter for general adult medical examination without abnormal findings
CPT/HCPCS: 36415; 80053; 80061; 81003; 82306; 84443; 85025; 96127

== ENCOUNTER 2024-11-01 16:20 | Outpatient (REF) | payer BC, SELFPAY ==
--- NOTE | ~2024-11-01 | US_ITS ---
EXAMINATION: US HEAD NECK SOFT TISSUE HISTORY: R22.1 - Localized swelling, mass and lump, neck COMPARISON: There are no prior studies available for comparison. FINDINGS: Sonographic examination of a palpable abnormality of the posterior upper neck was performed. No cyst or solid mass is identified. US/US soft tiss head and/or neck IMPRESSION: No sonographic abnormality is seen in the region of the palpable findings in the posterior upper neck. Electronically signed by: Jayant Garcia MD 11/02/2024 07:33 AM EDT
== END 2024-11-01 16:21 | disposition home or self-care (01) ==
LOC: HO.US 16:20
DX: R22.1 Localized swelling, mass and lump, neck (principal)
CPT/HCPCS: 76536

== ENCOUNTER → 2024-11-01 16:21 | Outpatient (BNV) | payer BC, SELFPAY | PROVIDERS: Visit Provider Radiology Diagnostic Radiology | DX: R22.1 Localized swelling, mass and lump, neck (principal) | CPT/HCPCS: 76536 ==

== ENCOUNTER 2025-02-05 13:49 | Outpatient (AMB) | payer BC, SELFPAY ==
[2025-02-05 13:51] VITALS: BP 106/60; PULSE 74; RESP 18; TEMP 35.8; O2SAT 97; BMI 31.7
--- NOTE | 2025-02-05 13:51 | MHC.PC.OV ---
Vital Signs 02/05/25 13:51 Height 5 ft 11 in Weight 227 lb 6 oz BMI 31.7 BP 106/60 Blood Pressure Location Lt brachial Position Sitting Respiration 18 Pulse 74 Pulse Source Pulse Oximeter Temp 96.4 F L Temp Source Temporal Artery Scan Pulse Oximetry (%) 97 Oxygen Delivery Method Room Air Intake Visit Reasons: follow up Community Pharmacist Required: No Accompanied by: Self / Same As Patient Allergies No Known Allergies Allergy (Verified 02/05/25 14:18) Medication List - Last Reconciled 02/05/25 by PADMAJA Vincent cholecalciferol (vitamin D3) 25 mcg PO DAILY epinephrine (EpiPen 2-Alex) 0.3 mg (0.3 mL) IM Q4H PRN 30 days Tobacco use date assessed: 02/05/25 Dental Screening Dental Screen Date: 02/05/25 Did you have a dental visit in the last 12 months?: Yes Did you have a dental problem in the last 6 months where you did not have access to dental care?: No Was dental information given to patient?: Patient has dentist HPI follow up HPI Details Dentist: up to date Eye: no Snellen: Right: Left: Corrected vision: no STI screening: Colonoscopy: Pap Smer: PHQ-9: Flu:no in a couple years COVID:x3 Tdap:2017 Diet:regular Exercise: running The patient is a 29-year-old male presenting for annual physical and a review of lab results. The patient reported that his blood pressure was noted to be on the lower side when first checked, which normalized when rechecked. He expressed uncertainty about the implications of this finding and sought clarification. The patient has a history of elevated bilirubin levels, which have been trending downwards. He was informed that while the bilirubin level was slightly elevated, it was not a significant concern unless it continued to rise. Additionally, one of the patient's liver enzymes was noted to be elevated. The patient was advised that factors such as fatty foods, Tylenol, and sugary drinks could contribute to this elevation. The patient has not consumed alcohol for four years and rarely uses Tylenol, which may reduce the likelihood of these being contributing factors. The patient engages in regular physical activity, running 20 to 25 miles per week, and has made dietary improvements to reduce heartburn. He acknowledges that further dietary improvements could aid in weight management. Preventative care measures discussed included influenza, COVID-19, and tetanus vaccinations. The patient has received COVID-19 vaccinations and a booster, but it has been approximately ten years since his last tetanus vaccination. [facility] Medical History (Updated 02/05/25 @ 14:47 by PADMAJA Vincent) Elevated liver enzymes No significant past medical history Family History Mother Mental health disorder Sister Mental health disorder Social History Household Members: Family Both parents involved: No Housing: House Are you a primary care aide to a significant other at home: No Do you presently have visiting nurse or other home services: No 75 years or older and lives alone: No Alcohol intake: former Patient Tobacco Use Status: Never used Tobacco e-Cigarette/Vaping Use: Never Used Second Hand Smoke Exposure: No Special toshia needs: No Agree to transfusion: Yes Advance Directives Date on File: 02/02/23 service: No Current occupational status: employed Current occupation: [employer] Current occupational exposures/hazards: No Cognitive needs: No Hearing needs: No Vision needs: No Questionnaire Thrive Questionnaire Date Thrive assessed: 09/19/24 I am a: Patient What is your living situation today?: I have a steady place to live Within the past 12 months, did the food you bought not last and you didn't have the money to get more?: Never true Within the past 12 months, did you worry whether your food would run out before you got money to buy more?: Never true Do you have trouble paying for medicines?: No Do you have trouble getting transportation to medical appointments?: No Do you have trouble paying your heating and electricity bill?: No Do you have trouble taking care of your child, family member or friend?: No Do you have trouble with day-to-day activities such as bathing, preparing meals, shopping, managing finances, etc.?: No Are you currently unemployed and looking for a job?: No Are you interested in more education?: No Please select the resources that you would like help with: None Currently or been in a relationship where the following occur: No concerns reported THRIVE Score: 0 RAQUEL-7 AMB Questionnaire RAQUEL-7 Date RAQUEL - 7 assessed: 09/19/24 Source: Developed by Drs. Jayant Gil, Paola Diallo, Pk Prasad and colleagues, with an educational pranay from [employer]. Review of Systems Const Denies headache(s) Eyes Denies loss of vision ENT Denies vertigo, Denies dizziness, Denies headache(s) and Denies sore throat Card Denies chest pain, Denies leg edema and Denies lightheadedness Resp Denies cough, Denies hemoptysis and Denies wheezing GI Denies abdominal pain, Denies melena, Denies constipation, Denies diarrhea, Denies vomiting and Reports other (johanny-umbilical mass) Denies dysuria, Denies urinary frequency and Denies urinary urgency Musc Denies arthralgias, Denies joint swelling, Denies numbness and Denies tingling Neuro Denies Abnormal speech present, Denies behavioral changes, Denies vertigo, Denies dizziness, Denies headache(s), Denies loss of vision, Denies memory loss, Denies numbness and Denies tingling Psych Denies anxiety, Denies behavioral changes, Denies depression, Denies memory loss and Denies panic attacks Eh/Lymph Denies easy bleeding and Denies easy bruising Aller/Immun Denies wheezing Physical exam (Primary Care) Vital Signs: Last Vital Signs Temp 96.4 F L 02/05/25 13:51 Pulse 74 02/05/25 13:51 Resp 18 02/05/25 13:51 BP 106/60 02/05/25 13:51 Pulse Ox 97 02/05/25 13:51 Oxygen Delivery Method Room Air 02/05/25 13:51 BMI result Body Mass Index 31.7 Tobacco/Smoking Status: Tobacco use Status Tobacco use date assessed 02/05/25 02/05/25 13:54 Patient Tobacco Use Status Never used Tobacco 02/05/25 13:54 e-Cigarette/Vaping Use Never Used 02/05/25 13:54 Thrive Assessment: Date of Thrive Assessment Date Thrive assessed 09/19/24 02/05/25 13:54 Currently or been in a relationship where the following occur: No concerns reported Const General: healthy appearing, no acute distress, alert and awake Nutritional Appearance: well nourished Orientation/consciousness: oriented to person, oriented to place and oriented to time [facility] Ears: TM's normal bilaterally General nose exam: Normal nasal mucous membranes and turbinates present Eyes Conjunctivae: conjunctivae normal Sclerae: sclerae normal Pupils: Equal, round and reactive pupils present Neck Neck: Yes no lymphadenopathy and Yes no JVD Thyroid: Thyroid normal Carotids: no bruits Resp Effort & Inspection: normal respiratory effort and not tachypneic Auscultation: no crackles, no rales, no rhonchi and no wheezes Cardio Rate: regular rate Rhythm: regular rhythm Heart sounds: no murmurs and normal S1 and S2 GI Palpation (GI): Soft to palpation, nontender, no hepatomegaly, no splenomegaly and Hernia present umbilical (suspected-small mass area upon palpation) Auscultation: normal bowel sounds General: Yes no CVA tenderness Back/Spine/Pelvis Back: no CVA tenderness Skin General skin exam: no rashes or lesions noted and dry skin Neuro General: oriented to person, oriented to place, oriented to time and CN's II-XI intact bilaterally Cranial nerves: Yes Equal, round and reactive pupils present and Yes Nystagmus not present Speech: No Abnormal speech present Gait exam (Neuro): Normal gait present Motor exam (neuro): 5/5 motor strength present throughout and no tremor noted Deep tendon reflexes (DTR's): Right triceps reflex intensity grade: 2+, Left triceps reflex intensity grade: 2+, Rt Biceps (C5, C6): 2+, Left biceps reflex intensity grade: 2+, Right brachioradialis reflex intensity grade: 2+, Left brachioradialis reflex intensity grade: 2+, Right patellar reflex intensity grade: 2+ and Left patellar reflex intensity grade: 2+ Extrem Right upper extremity: full ROM Left upper extremity: full ROM Right lower extremity: full ROM; no edema Left lower extremity: full ROM; no edema Psych Mental Status: mental status grossly normal Speech and movement: Normal speech and movement present Affect: normal affect Attitude: cooperative Thought process: Normal thought process present Results Reviewed Results Reviewed: Laboratory Tests 09/19/24 09/19/24 10:29 10:36 Sodium 141 Potassium 4.8 Chloride 108 Carbon Dioxide 28 Anion Gap 10 L BUN 13 Creatinine 0.97 Estimated GFR > 60 Fasting Glucose 95 Calcium 9.3 Total Bilirubin 1.9 H AST 36 ALT 42 H Alkaline Phosphatase 49 Total Protein 6.8 Albumin 4.4 Triglycerides 121 Cholesterol 121 LDL Cholesterol, Calc 60 HDL Cholesterol 37 L 25-OH Vitamin D Total 16.2 L TSH 0.83 Urine Color Yellow Urine Appearance Clear Urine pH 6.0 Ur Specific [place] 1.020 Urine Protein Negative Urine Glucose (UA) Negative Urine Ketones Negative Urine Blood Negative Urine Nitrite Negative Ur Leukocyte Esterase Negative Coding Level of Care Code Est Pt Prev Care [id number]([id number]) Diagnoses Annual physical exam Z00.00 Localized swelling, mass and lump, neck R22.1 Elevated alanine aminotransferase (ALT) level R74.01 Elevated bilirubin R17 Heartburn R12 Hyperlipidemia, unspecified hyperlipidemia type E78.5 Hyperlipidemia type: unspecified Time Spent (min) 37 Assessment & Plan Assessment & Plan (1) Annual physical exam: Code(s): Z00.00 - Encounter for general adult medical examination without abnormal findings Category: Medical Plan: Preventative guidelines and recent labs reviewed with the patient (2) Localized swelling, mass and lump, neck: Code(s): R22.1 - Localized swelling, mass and lump, neck Category: Medical Plan: One year history of right posterior neck lump. Reports that he has not noticed any changes to the lump area after noticing it. Denies pain the area. Neck US reveeled no mass in neck area-possible resolved lymph node. (3) Elevated alanine aminotransferase (ALT) level: Code(s): R74.01 - Elevation of levels of liver transaminase levels Category: Medical Plan: History of elevated liver enzymes. ALT continues to be elevated, though mildly elevated. Abdominal US was ordered and follow labs were ordered to further evaluate. (4) Elevated bilirubin: Code(s): R17 - Unspecified jaundice Category: Medical Plan: History of elevated bilirubin. The patient reports that he used to drink a lot of alcohol and has since stopped, so he is expecting that his numbers should be better. Bilirubin decreased from 2.5-1.9, though continues to be elevated. GGT added to follow up labs to further evaluate (5) Heartburn: Code(s): R12 - Heartburn Category: Medical Plan: Do not eat meals or drink carbonated beverages within 3 hr of bedtime Decrease the amount of fried, fatty, and spicy foods to decrease gastric acid production Raise the head of the bed using 4 to 6-inch blocks, especially if nocturnal symptoms are present Lose weight if indicated; avoid tight-fitting clothing, especially around the waist Avoid foods that relax the Lower esophageal sphincter (chocolate, peppermint, high-fat foods etc.,) (6) HLD (hyperlipidemia): Code(s): E78.5 - Hyperlipidemia, unspecified Category: Medical Qualifiers: Hyperlipidemia type: unspecified Qualified Code(s): E78.5 - Hyperlipidemia, unspecified Plan: Triglycerides 121, total cholesterol 121, LDL 60, HDL 37 Reports a history of high cholesterol. Encouraged Low cholesterol diet and activity as tolerated We will continue to monitor Orders: Orders Ceruloplasmin 02/05/25 R74.8 - Abnormal levels of other serum enzymes IRON PROFILE 02/05/25 R74.8 - Abnormal levels of other serum enzymes Liver Panel 02/05/25 R74.8 - Abnormal levels of other serum enzymes US abdomen complete 02/05/25 R17 - Unspecified jaundice, R19.05 - Periumbilic swelling, mass or lump, R74.01 - Elevation of levels of liver transaminase levels Hepatitis A,B,C Profile 02/05/25 R74.8 - Abnormal levels of other serum enzymes Gamma Glutamyl Transpeptidase 02/05/25 R74.8 - Abnormal levels of other serum enzymes
== END 2025-02-05 14:52 | disposition home or self-care (01) ==
LOC: HO.HMCH 13:50
DX: Z00.00 Encounter for general adult medical examination without abnormal findings (principal); R22.1 Localized swelling, mass and lump, neck; R74.01 Elevation of levels of liver transaminase levels; R17 Unspecified jaundice; R12 Heartburn; E78.5 Hyperlipidemia, unspecified

== ENCOUNTER 2025-02-26 09:26 | Outpatient (REF) | payer BC, SELFPAY ==
--- NOTE | ~2025-02-26 | US_ITS ---
CLINICAL HISTORY: R74.01 - Elevation of levels of liver transaminase levels US abdomen complete Comparison: None provided Findings: Evaluation somewhat limited by bowel gas. The visualized pancreas is normal. The aorta and inferior vena cava are normal caliber. The liver is normal in size and minimally increased in echotexture. There is no intrahepatic bile duct dilatation. The common duct is not well seen. The gallbladder is normal. There is no sonographic Eckert sign. The main portal vein is antegrade. The right kidney is 12.0 cm in length. The left kidney is 11.5 cm in length. The spleen is normal. No ascites. IMPRESSION: Minimal hepatic steatosis. No acute process. This document has been electronically signed by: Aleks Wilkinson MD on 02/26/2025 11:57:15
== END 2025-02-26 09:27 | disposition home or self-care (01) ==
LOC: HO.US 09:26
DX: R74.01 Elevation of levels of liver transaminase levels (principal); R17 Unspecified jaundice; R19.05 Periumbilic swelling, mass or lump
CPT/HCPCS: 76700

== ENCOUNTER → 2025-02-26 09:30 | Outpatient (BNV) | payer BC, SELFPAY | PROVIDERS: Visit Provider Radiology Vascular & Interventional Radiology | DX: R74.01 Elevation of levels of liver transaminase levels (principal) | CPT/HCPCS: 76700 ==